=== PATIENT | female | born 1990 | race Caucasian/White ===

== ENCOUNTER 2024-03-08 19:37 | Emergency (ER) | payer OTHER ==
[2024-03-08 19:54] VITALS: BP 119/77; PULSE 70; RESP 17; TEMP 98; BMI 23.8
[2024-03-08] MEDS ORDERED: CEPHALEXIN MONOHYDRATE 500 MG CAPSULE (UD) ONE (20:27)
[2024-03-08] MEDS: CEPHALEXIN MONOHYDRATE 500 MG CAPSULE (UD) PO ONE (20:30)
== END 2024-03-08 20:37 | disposition home or self-care (01) ==
LOC: FER 19:37
DX: S56.128A Laceration of flexor muscle, fascia and tendon of left little finger at forearm level, initial encounter (principal); W26.0XXA Contact with knife, initial encounter
CPT/HCPCS: 99283-25